=== PATIENT | male | born 1985 | race Caucasian/White ===

== ENCOUNTER 2019-03-19 19:28 | Emergency (ER) | payer MEDICAID, SELFPAY ==
[2019-03-19] VITALS (11 sets, daily range): BP systolic 121–123; BP diastolic 64–74; PULSE 65–73; RESP 16–20; TEMP 36.9–37.2; O2SAT 95–100
--- NOTE | 2019-03-19 19:46 | W.ED.GENAD ---
Discharge Plan Disposition Patient Disposition: HOME Condition: Good Discharge Details Chief Complaint: Abd Prob Clinical Impression: Abdominal pain, epigastric Primary Care Provider: Jennifer Benitez ED Provider: Tim Sutton [place] Meds and New Rx's Prescriptions: New esomeprazole magnesium 40 mg capsule,delayed release(DR/EC) 40 mg PO DAILY Qty: 30 RF: 0 ranitidine HCl 300 mg tablet 300 mg PO QHS Qty: 30 RF: 0 Continued amantadine HCl 100 mg Tablet 100 mg PO BID RF: 0 carbidopa-levodopa 25-100 mg Tablet 1 tab PO TID RF: 0 oxycodone 10 mg Tablet 10 mg PO Q6H PRNRF: 0 ropinirole 4 mg Tablet Extended Release 24 Hr 4 mg PO QHS RF: 0 zolpidem 5 mg Tablet 5 mg PO HS RF: 0 sucralfate [Carafate] 100 mg/mL Suspension 10 ml PO QID Qty: 400 RF: 0 Discontinued metoclopramide HCl 10 mg Tablet 10 mg PO Q6H RF: 0 Discharge Instructions Instructions: Epigastric Pain (ED) Additional Instructions: Please take medications as we have discussed. Stay hydrated. Try a BRAT diet. Call our surgery clinic in the morning and make an appointment for Sunday. Return to ED for fever, vomiting, black or bloody stool, new/worsening pain. Referrals: Sybil Bowers MD [ [facility] STAFF PHYSICIAN] - Discharge Data Discharge Date/Time-TO BE ENTERED AT DEPARTURE: 03/19/19 22:35 Medical Decision Making Patient presenting with continued epigastric abdominal pain. Reports negative work-up x3 at [facility]. I did obtain his last visit records as well as the surgeon's note from today. He has had laboratory studies which are unremarkable. CT and abdominal x-rays unremarkable. Surgeon's note suggests that he thinks this is chronic abdominal pain and constipation related to opiate use. Patient does have a benign abdomen. I did place a line to give him fluids and Pepcid. The notes suggest that he is on a PPI as well as Carafate although he is not sure exactly which medications he is taking. He is also placed on Reglan but my review of medication interactions suggest that Reglan should not be used due to his Parkinson's medications and the risk of decreasing their efficacy. I spoke with our surgeon, Dr. Velez. I do agree that patient has a benign abdomen. He has had a work-up that seems appropriate at [facility]. I do think, however, he needs endoscopy sooner rather than later. I actually think his symptoms are highly suggestive of peptic ulcer disease. There is note made in the surgeon's chart the patient does have a prior history of esophagitis. Dr. Velez thinks that they will likely be able to get the patient into the clinic to be seen early next week. Patient is asked to continue Carafate 4 times a day. Nexium 40 mg in the morning. Zantac 300 mg at night. Contact surgery clinic tomorrow for appointment on Sunday if possible. Return to ED for fever, no/worsening abdominal pain, persistent vomiting, hematemesis/coffee-ground emesis, black or bloody stool. Medical Records Medical records reviewed: Yes I reviewed the patient's medical records. HPI General Mode of arrival: ambulatory. Date/Time Provider Initiated Documentation: 03/19/19 19:37. Limitations to Documentation: no limitations. Information obtained by: patient. HPI Narrative: Patient presents to ED with complaints of epigastric abdominal pain. Patient reports worsening epigastric pain for the last 2 weeks. He has not really been able to eat much of anything this week. He has been seen at [facility] 3 times including last night. He reports laboratory studies, CT scan, x-rays being negative. He was supposed to have endoscopies done today but they were canceled. He was seen by a surgeon who has apparently scheduled him for sometime in April. His pain was worse again tonight. He called his primary care physician and per his report was told he should come here to our emergency department for a second opinion. Patient has Parkinson's as well as chronic pain. He does use oxycodone on a regular basis. He does have episodes of opioid-induced constipation with associated abdominal pain at that time. He takes medications which allow him to go to the bathroom and then he feels better. He does not have daily constipation or daily abdominal pain. This pain that he is describing over the last couple weeks is new and different. Related Data Home Medications Medication Instructions Recorded Confirmed amantadine HCl 100 mg PO BID 03/19/19 03/19/19 carbidopa-levodopa 1 tab PO TID 03/19/19 03/19/19 esomeprazole magnesium 40 mg PO DAILY #30 cap 03/19/19 oxycodone 10 mg PO Q6H PRN 03/19/19 03/19/19 ranitidine HCl 300 mg PO QHS #30 tab 03/19/19 ropinirole 4 mg PO QHS 03/19/19 03/19/19 sucralfate [Carafate] 10 ml PO QID #400 ml 03/19/19 zolpidem 5 mg PO HS 03/19/19 03/19/19 Previous Rx's Medication Instructions Recorded esomeprazole magnesium 40 mg PO DAILY #30 cap 03/19/19 ranitidine HCl 300 mg PO QHS #30 tab 03/19/19 sucralfate [Carafate] 10 ml PO QID #400 ml 03/19/19 Allergies Allergy/AdvReac Type Severity Reaction Status Date / Time No Known Allergies Allergy Unverified 03/19/19 19:42 General Stated Complaint: Abd Prob CURLY: 3 Review of Systems Review of Systems As documented in HPI otherwise negative as below. Const: no fever, chills, weakness Resp: no cough, SOB, pleuritic pain CV: no CP, diaphoresis, edema, syncope GI: abdominal pain, nausea; no vomiting, diarrhea Neuro: no headache, numbness, focal weakness, confusion PFSH Medical History Degenerative disc disease (Acute) H/O endoscopy (Acute) Parkinson disease (Chronic) Surgical History History of carpal tunnel release of both wrists (Acute) Social History Smoking/Tobacco Use Status: Former Tobacco Use Drug use: Never Do you feel safe at home: Yes Exam Narrative Exam Narrative: Vitals: Afebrile with normal vitals. Const: WDWN male in NAD. HEENT: NC/AT. Normal facial exam. Eyes: Normal conjunctiva and sclera. Neck: Supple. Trachea midline. Lungs: Normal respiratory effort. Lungs are clear. Cor: RRR without murmur/gallop. Good radial pulses. GI: Soft. NT/ND. No guarding or rebound. No HSM. Neuro: A+O x 3. CN grossly in tact. Good strength and no focal deficit. Ext: No C/C/E. No deformity or tenderness. Skin: Warm and dry without rash. Course Vital Signs Temperature 98.4 F 03/19/19 19:38 Pulse 73 03/19/19 19:38 Respiratory Rate 20 03/19/19 19:38 Blood Pressure 123/64 03/19/19 19:38 Pulse Oximetry 98 03/19/19 19:38 Temperature 98.4 F 03/19/19 19:38 Temperature Source Skin 03/19/19 19:38 Pulse 73 03/19/19 19:38 Respiratory Rate 20 03/19/19 19:38 Blood Pressure 123/64 03/19/19 19:38 Pulse Oximetry 98 03/19/19 19:38 Oxygen Delivery Method Room Air 03/19/19 19:38 Oxygen Flow Rate 0 03/19/19 19:38 Pain Level 8 03/19/19 19:38
--- NOTE | 2019-03-19 19:49 | ED.GENADUL_ITS ---
Discharge Plan Disposition Patient Disposition: HOME Condition: Good Discharge Details Chief Complaint: Abd Prob Clinical Impression: Abdominal pain, epigastric Primary Care Provider: Jennifer Benitez ED Provider: Tim Sutton [place] Meds and New Rx's Prescriptions: New esomeprazole magnesium 40 mg capsule,delayed release(DR/EC) 40 mg PO DAILY Qty: 30 RF: 0 ranitidine HCl 300 mg tablet 300 mg PO QHS Qty: 30 RF: 0 Continued amantadine HCl 100 mg Tablet 100 mg PO BID RF: 0 carbidopa-levodopa 25-100 mg Tablet 1 tab PO TID RF: 0 oxycodone 10 mg Tablet 10 mg PO Q6H PRNRF: 0 ropinirole 4 mg Tablet Extended Release 24 Hr 4 mg PO QHS RF: 0 zolpidem 5 mg Tablet 5 mg PO HS RF: 0 sucralfate [Carafate] 100 mg/mL Suspension 10 ml PO QID Qty: 400 RF: 0 Discontinued metoclopramide HCl 10 mg Tablet 10 mg PO Q6H RF: 0 Discharge Instructions Instructions: Epigastric Pain (ED) Additional Instructions: Please take medications as we have discussed. Stay hydrated. Try a BRAT diet. Call our surgery clinic in the morning and make an appointment for Sunday. Return to ED for fever, vomiting, black or bloody stool, new/worsening pain. Referrals: Sybil Bowers MD [ [facility] STAFF PHYSICIAN] - Discharge Data Discharge Date/Time-TO BE ENTERED AT DEPARTURE: 03/19/19 22:35 Medical Decision Making Patient presenting with continued epigastric abdominal pain. Reports negative work-up x3 at [facility]. I did obtain his last visit records as well as the surgeon's note from today. He has had laboratory studies which are unremarkable. CT and abdominal x-rays unremarkable. Surgeon's note suggests that he thinks this is chronic abdominal pain and constipation related to opiate use. Patient does have a benign abdomen. I did place a line to give him fluids and Pepcid. The notes suggest that he is on a PPI as well as Carafate although he is not sure exactly which medications he is taking. He is also placed on Reglan but my review of medication interactions suggest that Reglan should not be used due to his Parkinson's medications and the risk of decreasing their efficacy. I spoke with our surgeon, Dr. Velez. I do agree that patient has a benign abdomen. He has had a work-up that seems appropriate at [facility]. I do think, however, he needs endoscopy sooner rather than later. I actually think his symptoms are highly suggestive of peptic ulcer disease. There is note made in the surgeon's chart the patient does have a prior history of esophagitis. Dr. Velez thinks that they will likely be able to get the patient into the clinic to be seen early next week. Patient is asked to continue Carafate 4 times a day. Nexium 40 mg in the morning. Zantac 300 mg at night. Contact surgery clinic tomorrow for appointment on Sunday if possible. Return to ED for fever, no/worsening abdominal pain, persistent vomiting, hematemesis/coffee- ground emesis, black or bloody stool. Medical Records Medical records reviewed: Yes I reviewed the patient's medical records. HPI General Mode of arrival: ambulatory . Date/Time Provider Initiated Documentation: 03/19/19 19:37 . Limitations to Documentation: no limitations . Information obtained by: patient . HPI Narrative: Patient presents to ED with complaints of epigastric abdominal pain. Patient reports worsening epigastric pain for the last 2 weeks. He has not really been able to eat much of anything this week. He has been seen at [facility] 3 times including last night. He reports laboratory studies, CT scan, x-rays being negative. He was supposed to have endoscopies done today but they were canceled. He was seen by a surgeon who has apparently scheduled him for sometime in April. His pain was worse again tonight. He called his primary care physician and per his report was told he should come here to our emergency department for a second opinion. Patient has Parkinson's as well as chronic pain. He does use oxycodone on a regular basis. He does have episodes of opioid-induced constipation with associated abdominal pain at that time. He jane es medications which allow him to go to the bathroom and then he feels better. He does not have daily constipation or daily abdominal pain. This pain that he is describing over the last couple weeks is new and different. Related Data Home Medications Medication Instructions Recorded Confirmed amantadine HCl 100 mg PO BID 03/19/19 03/19/19 carbidopa-levodopa 1 tab PO TID 03/19/19 03/19/19 esomeprazole magnesium 40 mg PO DAILY #30 cap 03/19/19 oxycodone 10 mg PO Q6H PRN 03/19/19 03/19/19 ranitidine HCl 300 mg PO QHS #30 tab 03/19/19 ropinirole 4 mg PO QHS 03/19/19 03/19/19 sucralfate [Carafate] 10 ml PO QID #400 ml 03/19/19 zolpidem 5 mg PO HS 03/19/19 03/19/19 Previous Rx's Medication Instructions Recorded esomeprazole magnesium 40 mg PO DAILY #30 cap 03/19/19 ranitidine HCl 300 mg PO QHS #30 tab 03/19/19 sucralfate [Carafate] 10 ml PO QID #400 ml 03/19/19 Allergies Allergy/AdvReac Type Severity Reaction Status Date / Time No Known Allergies Allergy Unverified 03/19/19 19:42 General Stated Complaint: Abd Prob CULRY: 3 Review of Systems Review of Systems As documented in HPI otherwise negative as below. Const: no fever, chills, weakness Resp: no cough, SOB, pleuritic pain CV: no CP, diaphoresis, edema, syncope GI: abdominal pain, nausea; no vomiting, diarrhea Neuro: no headache, numbness, focal weakness, confusion PFSH Medical History Degenerative disc disease (Acute) H/O endoscopy (Acute) Parkinson disease (Chronic) Surgical History History of carpal tunnel release of both wrists (Acute) Social History Smoking/Tobacco Use Status: Former Tobacco Use Drug use: Never Do you feel safe at home: Yes Exam Narrative Exam Narrative: Vitals: Afebrile with normal vitals. Const: WDWN male in NAD. HEENT: NC/AT. Normal facial exam. Eyes: Normal conjunctiva and sclera. Neck: Supple. Trachea midline. Lungs: Normal respiratory effort. Lungs are clear. Cor: RRR without murmur/gallop. Good radial pulses. GI: Soft. NT/ND. No guarding or rebound. No HSM. Neuro: A+O x 3. CN grossly in tact. Good strength and no focal deficit. Ext: No C/C/E. No deformity or tenderness. Skin: Warm and dry without rash. Course Vital Signs Temperature 98.4 F 03/19/19 19:38 Pulse 73 03/19/19 19:38 Respiratory Rate 20 03/19/19 19:38 Blood Pressure 123/64 03/19/19 19:38 Pulse Oximetry 98 03/19/19 19:38 Temperature 98.4 F 03/19/19 19:38 Temperature Source Skin 03/19/19 19:38 Pulse 73 03/19/19 19:38 Respiratory Rate 20 03/19/19 19:38 Blood Pressure 123/64 03/19/19 19:38 Pulse Oximetry 98 03/19/19 19:38 Oxygen Delivery Method Room Air 03/19/19 19:38 Oxygen Flow Rate 0 03/19/19 19:38 Pain Level 8 03/19/19 19:38
[2019-03-19] MEDS: Lactated Ringers 1,000 ML 1000 ML IV (20:48)
[2019-03-19] MEDS: FAMOTIDINE 20 MG/50 ML BAG 100 MG IVPB (20:48)
[2019-03-19] MEDS: Mylanta Suspension 30 ML CUP (22:15)
[2019-03-19] MEDS: Lidocaine 2% Viscous 15 ML CUP (22:16)
== END 2019-03-19 22:35 | disposition home or self-care (01) ==
PROVIDERS: Emergency Provider Emergency Medicine; PCP Physician Assistant Medical
DX: R10.13 Epigastric pain (principal); G89.29 Other chronic pain; Z79.891 Long term (current) use of opiate analgesic; G20 Parkinson's disease
CPT/HCPCS: 96361; 96365; 99284

== ENCOUNTER 2019-03-23 19:14 | Emergency (ER) | payer MEDICAID, SELFPAY ==
[2019-03-23 19:19] VITALS: BP 120/101; PULSE 66; RESP 18; TEMP 36.6; O2SAT 99
--- NOTE | 2019-03-23 19:59 | ED.GENADUL_ITS ---
Discharge Plan Disposition Patient Disposition: HOME Condition: Stable Discharge Details Chief Complaint: Abd Prob Clinical Impression: Abdominal pain Primary Care Provider: Jennifer Benitez ED Provider: Carina Stone Home Meds and New Rx's Prescriptions: New ondansetron 4 mg tablet,disintegrating 4 mg PO QID PRN (Reason: nausea and vomiting) Qty: 10 RF: 0 Continued amantadine HCl 100 mg Tablet 100 mg PO BID RF: 0 carbidopa-levodopa 25-100 mg Tablet 1 tab PO TID RF: 0 oxycodone 10 mg Tablet 10 mg PO Q6H PRNRF: 0 ropinirole 4 mg Tablet Extended Release 24 Hr 4 mg PO QHS RF: 0 zolpidem 5 mg Tablet 5 mg PO HS RF: 0 esomeprazole magnesium 40 mg capsule,delayed release(DR/EC) 40 mg PO DAILY Qty: 30 RF: 0 ranitidine HCl 300 mg tablet 300 mg PO QHS Qty: 30 RF: 0 sucralfate [Carafate] 100 mg/mL Suspension 10 ml PO QID Qty: 400 RF: 0 Discharge Instructions Instructions: Ondansetron (By mouth), Abdominal Pain (ED) Additional Instructions: Encourage hydration. Please call radiology tomorrow morning to schedule outpatient ultrasound [phone]. In prep for this, please do not eat anything after midnight. Please keep your appointment tomorrow with Dr. Bowers. Remain on a clear liquid diet (after your ultrasound) and she plans to take you for colonoscopy and endoscopy on Sunday. You may use Zofran as prescribed to help with any recurrence of your nausea. If you develop fever/chills, inability stay hydrated, increased pain or other new/worsening symptoms please seek care urgently once again Discharge Data Discharge Date/Time-TO BE ENTERED AT DEPARTURE: 03/23/19 22:08 Medical Decision Making Patient is a 33 male presenting today, accompanied by his , with c/c of abdominal pain. Patient has history of chronic back pain for which he has been on narcotics, Parkinsons, degenerative disc disease. He has had this pain for the past several weeks. Was seen here last week, has been seen multiple times at [facility] for same complaint. Presents today as rosemarie pain has increased and he had episode of emesis which is atypical for the patient. No previousl abdominal surgeries. He was seen by gneral surgeon who advised EGD and colonoscopybut this was not able to be scheduled until April. He has appointment with general surgery here tomorrow. Patient reprots no BM in 6 days, had used entire bottle of Miralax the night prior to his last BM. No change in urinary habits. Denies marijuana use. No ETOh intake. On exam, patient appears fatigued and slightly uncomfortable. He abdominal exam is benign. No tenderness elicited, no peritoneal findings. No CVA tenderness. As he has no BM in 6 days, no flatus reported and he has increased pain, concerned for possible obstruction. Patient on mcfp opioids. Plan for labs and imagi ng. Labs reassuring, no leukocytosis, no electrolye abnormalities. Lipase is normal. CT reviewed by radiologist: FINDINGS: Liver: There is a diffuse decrease in hepatic parenchymal density, consistent with mild fatty infiltration. Gallbladder and bile ducts: No intrahepatic biliary ductal dilatation Common bile duct is normal in caliber. No gallstones, gallbladder wall thickening or pericholecystic inflammatory change. Pancreas: There is mild diffuse peripancreatic inflammatory stranding and fluid, consistent with acute pancreatitis. Main pancreatic duct is normal in caliber. Spleen: Normal. No splenomegaly. Adrenals: Normal. No mass. Kidneys and ureters: Normal. No hydronephrosis. Stomach and bowel: Normal. No obstruction. No mucosal thickening. Appendix: No evidence of appendicitis. Intraperitoneal space: There is a small amount of free intraperitoneal fluid present. No free intraperitoneal gas, collections or air-fluid levels. Vasculature: Normal. No abdominal aortic aneurysm. Lymph nodes: Normal. No enlarged lymph nodes. Bladder: Unremarkable as visualized. Reproductive: Unremarkable as visualized. Bones/joints: The spine demonstrates mild degenerative changes at multiple l evels. Posterior disc bulge at L5-S1 level. Soft tissues: Unremarkable. IMPRESSION: 1. Acute pancreatitis. 2. Mild intrahepatic biliary ductal dilatation which may be as a consequence of inflammatory process involving the pancreas. 3. Fatty liver. 4. Disc bulge L5-S1 level. Consulted with Dr. Bowers who advised that the inflammatory changes in the pancrease, as patient does not have history of pancreatitis historically and has no elevation of his lipase, may be associated with ulcer. She advised that the patient if has not undergone abdominal ultrasound this should be completed. Patient has an appointment with her tomorrow at noon. Will attempt to have this completed prior to their appointment. She is also asked the patient remain on a clear liquid diet as she will plan to schedule him for surgery Sunday for an endoscopy and colonoscopy Patient is feeling much improved after Zofran and Toradol. He is requesting a GI cocktail was also worked well for him in the past. Patient feels improved. Has not had US. Will order this in hopes for it to be completed tomorrow morning prior to his appointment. He was given strict return precautions. All questions and concerns were addressed, they are in agreement iwht this plan. HPI General Mode of arrival: ambulatory . Date/Time Provider Initiated Documentation: 03/23/19 19:17 . Limitations to Documentation: no limitations . Information obtained by: patient, family and RN notes reviewed . History of Present Illness 33 year old M presents to the emergency department with the chief complaint of abdominal pain, described as severe and similar to prior episodes, Quality is described as stabbing, and is localized to the abdomen. Patient reports no radiation. Patient started experiencing this week(s) and it has been constant. No relieving factors improve symptom(s), No exacerbating factors reported . Patient notes loss of appetite, malaise and nausea/vomiting (vomited x 1); denies chest pain, cough, fever/chills, headaches, rash, shortness of breath and weakness. Patient did receive the following treatments prior to arrival, none Related Data Home Medications Medication Instructions Recorded Confirmed amantadine HCl 100 mg PO BID 03/19/19 03/23/19 carbidopa-levodopa 1 tab PO TID 03/19/19 03/23/19 esomeprazole magnesium 40 mg PO DAILY #30 cap 03/19/19 03/23/19 oxycodone 10 mg PO Q6H PRN 03/19/19 03/23/19 ranitidine HCl 300 mg PO QHS #30 tab 03/19/19 03/23/19 ropinirole 4 mg PO QHS 03/19/19 03/23/19 sucralfate [Carafate] 10 ml PO QID #400 ml 03/19/19 03/23/19 zolpidem 5 mg PO HS 03/19/19 03/23/19 ondansetron 4 mg PO QID PRN #10 tab 03/23/19 Previous Rx's Medication Instructions Recorded esomeprazole magnesium 40 mg PO DAILY #30 cap 03/19/19 ranitidine HCl 300 mg PO QHS #30 tab 03/19/19 sucralfate [Carafate] 10 ml PO QID #400 ml 03/19/19 ondansetron 4 mg PO QID PRN #10 tab 03/23/19 Allergies Allergy/AdvReac Type Severity Reaction Status Date / Time No Known Allergies Allergy Unverified 03/23/19 19:22 General Stated Complaint: Abd Prob CURLY: 3 Review of Systems Constitutional Reports as per HPI, Denies chills, Denies fatigue, Denies fever(s) and Denies headache(s) ENT Denies headache(s) Cardiovascular Reports as per HPI, Denies chest pain and Denies dyspnea Respiratory Reports as per HPI, Denies cough and Denies dyspnea Gastrointestinal Reports as per HPI Genitourinary Denies system reviewed and no additional complaints, except as docu (patient denies any change in urinary habits) Musculoskeletal Reports as per HPI and Denies back pain Integumentary/Breasts Reports as per HPI and Denies rash Neurologic Reports as per HPI and Denies headache(s) Endocrine Denies fatigue [facility] Medical History Degenerative disc disease (Acute) H/O endoscopy (Acute) Parkinson disease (Chronic) Surgical History History of carpal tunnel release of both wrists (Acute) Social History Smoking/Tobacco Use Status: Current every day Tobacco Type: cigarettes Alcohol Intake: never Drug use: Never Do you feel safe at home: Yes Do you feel safe in your relationship?: Yes Exam Const General: cooperative, healthy appearing, comfortable, no acute distress and well developed Nutritional Appearance: average body habitus and well nourished Orientation: alert and awake [facility] Head: normal to inspection Mouth: moist mucous membranes Resp Effort & Inspection: normal respiratory effort, able to speak in complete sentences and no respiratory distress Auscultation: clear to auscultation bilaterally, no rales, no rhonchi and no wheezes Cardio Rate: regular rate Rhythm: regular rhythm Heart Sounds: S1 normal and S2 normal GI Inspection: normal to inspection, no edema, non-distended and no incisions Palpation: soft, no hepatosplenomegaly, not firm, no guarding, not rigid and nontender Percussion: normal to percussion Auscultation: hypoactive bowel sounds Back/Spine/Pelvis Back: no CVA tenderness Skin General skin exam: no rashes or lesions noted Trauma: no lacerations or abrasions Neuro General: alert and awake Cognition: normal cognition Speech: speech normal Gait: normal gait Extrem General: normal to inspection, full ROM, normal capillary refill, no pedal edema, no calf tenderness and normal gait Psych Appearance: grossly normal and well kempt Mental Status: mental status grossly normal Speech and Movement: speech and movement normal Course Vital Signs Temperature 36.6 C 03/23/19 19:19 Pulse 66 03/23/19 19:19 Respiratory Rate 18 03/23/19 19:19 Blood Pressure 120/101 H 03/23/19 19:19 Pulse Oximetry 99 03/23/19 19:19 Temperature 36.6 C 03/23/19 19:19 Temperature Source Skin 03/23/19 19:19 Pulse 66 03/23/19 19:19 Respiratory Rate 18 03/23/19 19:19 Respiratory Effort Non-Labored 03/23/19 19:21 Blood Pressure 120/101 H 03/23/19 19:19 Blood Pressure Position Supine 03/23/19 19:19 Pulse Oximetry 99 03/23/19 19:19 Oxygen Delivery Method Room Air 03/23/19 19:19 Oxygen Flow Rate 0 03/23/19 19:19 Pain Level 10 03/23/19 19:41
[2019-03-23] MEDS: Normal Saline 1,000 ML 1000 ML IV (20:14)
[2019-03-23] MEDS: Ondansetron 4 MG/2 ML VIAL IVP (20:15)
[2019-03-23] MEDS: Ketorolac 30 MG/ML VIAL IVP (20:15)
[2019-03-23 20:25] LABS: Abs Immature Grans 0.02 k/cumm (0.0-0.09); Absolute Basophil Count 0.02 k/cumm (0.0-0.2); Absolute Eosinophil Count 0.06 k/cumm (0.0-0.7); Absolute Lymphocyte Count 1.08 k/cumm (1.2-3.4); Absolute Monocyte Count 0.82 k/cumm (0.11-0.7); Absolute Neutrophil Count 8.04 k/cumm (1.2-6.7); Basophils % 0.2; Eosinophils % 0.6; HCT 47.2 % (40.0-50.0); HGB 16.5 g/dL (13.5-17.5); Immature Grans % 0.2; Lymphocytes % 10.8; Mean Corpuscular Hemoglobin 30.4 pg (27.0-33.0); Mean Corpuscular Volume 87.1 fL (80-95); Mean Platelet Volume 12.3 fL (8.0-11.0); Monocytes % 8.2; Platelet Count 154 x1000/uL (130-400); RBC 5.42 m/cumm (4.50-6.00); RBC Distribution Width 11.9 % (11.8-14.1); White Blood Cell Count 10.04 k/cumm (4.4-10.8)
[2019-03-23 20:36] VITALS: BP 105/53; PULSE 57; RESP 16; O2SAT 98
[2019-03-23 20:41] LABS: ALT 42 U/L (12-78); AST 18 U/L (15-37); Albumin 4.4 g/dL (3.4-5.0); Alkaline Phosphatase 122 U/L (46-116); Anion Gap 11.6 mmol/L (3-11); BUN 11 mg/dL (7-18); Bilirubin, Total 0.7 mg/dL (0.2-1.0); CO2 28.4 mmol/L (21.0-32.0); CREATININE 0.94 mg/dL (0.70-1.30); Calcium 9.8 mg/dL (8.5-10.1); Chloride 98 mmol/L (98-107); Glucose 98 mg/dL (70-100); Lipase 82 U/L (73-393); Sodium 138 mmol/L (136-145); Total Protein 9.1 g/dL (6.4-8.2)
[2019-03-23] MEDS: Omnipaque 350 MG/ML 100 ML BTL IJ (20:59)
[2019-03-23] MEDS: Normal Saline Flush 10 ML SYR IVP (21:00)
--- NOTE | 2019-03-23 21:00 | DI.CT_ITS ---
SYMPTOM/DIAGNOSIS: ABD PAIN, ? OBSTRUCTION ABDOMEN AND PELVIC CT: CT scan of the abdomen and pelvis was performed following the uneventful administration of intravenous contrast material. There are no priors for comparison. There does appear to be diffuse decreased attenuation of the liver suggesting fatty infiltration. No discrete hepatic mass is present. There is decreased attenuation seen in the left portal vein. The gallbladder is negative. There is no biliary ductal dilatation. Mild increased attenuation is seen in the region of the pancreas and the retroperitoneal space at the level of the superior mesenteric artery. A mild pancreatitis cannot be excluded. The spleen and adrenal glands are unremarkable as are the kidneys, ureters and bladder. The reproductive organs are unremarkable. The bowel shows no evidence of obstruction or inflammation. No findings to suggest an acute appendicitis are present. A normal appendix is seen in the right lower quadrant of the abdomen. No significant abdominal or pelvic adenopathy, ascites or pneumoperitoneum is present. No acute osseous abnormality is identified. There is a trace amount of free fluid in the pelvis. Degenerative changes are seen in the spine. IMPRESSION: 1. Mild increased attenuation in the peripancreatic soft tissues and retroperitoneum at this level. A mild acute pancreatitis cannot be excluded. Please correlate with the patient's laboratory values. 2. Findings of decreased attenuation of the portal vein. A post contrast CT scan of the abdomen is recommended to coincide with venous enhancement to exclude filling defect such as a thrombus. Alternatively a right upper quadrant ultrasound may be considered for further evaluation. 3. Hepatic steatosis.
--- NOTE | 2019-03-23 21:24 | DI.VRAD_ITS ---
EXAM: CT Abdomen and Pelvis With Contrast EXAM DATE/TIME: 03/23/2019 8:09 PM CLINICAL HISTORY: 33 years old, male; Abdominal pain; Other: ? Obstruction TECHNIQUE: Imaging protocol: Axial computed tomography images of the abdomen and pelvis with intravenous contrast. Coronal and sagittal reformatted images were created and reviewed. Contrast material: OMNIPAQUE 350; Contrast volume: 100 ml; Contrast route: IV RAC; COMPARISON: No relevant prior studies available. FINDINGS: Liver: There is a diffuse decrease in hepatic parenchymal density, consistent with mild fatty infiltration. Gallbladder and bile ducts: No intrahepatic biliary ductal dilatation Common bile duct is normal in caliber. No gallstones, gallbladder wall thickening or pericholecystic inflammatory change. Pancreas: There is mild diffuse peripancreatic inflammatory stranding and fluid, consistent with acute pancreatitis. Main pancreatic duct is normal in caliber. Spleen: Normal. No splenomegaly. Adrenals: Normal. No mass. Kidneys and ureters: Normal. No hydronephrosis. Stomach and bowel: Normal. No obstruction. No mucosal thickening. Appendix: No evidence of appendicitis. Intraperitoneal space: There is a small amount of free intraperitoneal fluid present. No free intraperitoneal gas, collections or air-fluid levels. Vasculature: Normal. No abdominal aortic aneurysm. Lymph nodes: Normal. No enlarged lymph nodes. Bladder: Unremarkable as visualized. Reproductive: Unremarkable as visualized. Bones/joints: The spine demonstrates mild degenerative changes at multiple levels. Posterior disc bulge at L5-S1 level. Soft tissues: Unremarkable. IMPRESSION: 1. Acute pancreatitis. 2. Mild intrahepatic biliary ductal dilatation which may be as a consequence of inflammatory process involving the pancreas. 3. Fatty liver. 4. Disc bulge L5-S1 level. Dictated and Authenticated by: Alcon Chew MD. Ordering:SHAMEKA Lim MD
[2019-03-23 21:30] LABS: Bilirubin Small (Negative); Blood Negative (Negative); Clarity Clear (Clear); Glucose Negative (Negative); Ketones 80 mg/dL (Negative); Leukocyte Esterase Negative (Negative); Nitrite Negative (Negative); Specific Gravity 1.015 (1.005-1.025); Urobilinogen 0.2 EU/dL (Up TO 0.2)
[2019-03-23 21:35] LABS: Bacteria Negative HPF (Negative); C & S Indicated? No; Casts Negative LPF (Negative); Crystals Negative HPF (Negative); Epithelial Cells Negative HPF (Negative); Mucus Moderate (Negative); Other Cells Negative (Negative); RBC Negative (0-2); WBC 0-2 HPF (0-5)
[2019-03-23 21:57] VITALS: BP 111/55; PULSE 68; RESP 18; TEMP 36.7; O2SAT 98
[2019-03-23] MEDS: Ondansetron O.D.T. 4 MG TABEF 12 MG PO (22:08)
== END 2019-03-23 22:08 | disposition home or self-care (01) ==
PROVIDERS: Emergency Provider Physician Assistant; PCP Physician Assistant Medical
DX: R10.9 Unspecified abdominal pain (principal); G89.29 Other chronic pain; M54.9 Dorsalgia, unspecified; Z79.891 Long term (current) use of opiate analgesic; G20 Parkinson's disease
CPT/HCPCS: 80053; 83690; 96361; 96374; 96375; 99285; 74177; 81003; 81015; 83735; 85025; 99284; J1885; J2405; J3490

== ENCOUNTER 2019-03-24 07:51 | Outpatient (CLI) | payer MEDICAID, SELFPAY ==
--- NOTE | 2019-03-24 12:29 | DI.US_ITS ---
SYMPTOM/DIAGNOSIS: EPIGASTRIC PAIN, ? PANCREATITIS, F/U ABNL CT ABDOMEN ULTRASOUND: Routine examination was performed. The study is severely limited due to overlying bowel gas. The aorta appears to be normal in caliber. The inferior vena cava was not visualized. Significant portions of the liver could not be visualized due to patient body habitus. No gross hepatic abnormality is identified. No biliary ductal dilatation is seen. No stones are seen in the gallbladder. No gallbladder wall thickening or pericholecystic fluid is seen. There may be a small amount of sludge within the gallbladder. The visualized portions of the pancreas and kidney are unremarkable. The spleen is at the upper limits of normal at 12.7 cm. in length. IMPRESSION: 1. Limited examination due to overlying bowel and patient body habitus. 2. No evidence of cholelithiasis or biliary ductal dilatation. 3. Question of gallbladder sludge.
== END 2019-03-24 08:11 ==
PROVIDERS: PCP Physician Assistant Medical; Visit Provider Physician Assistant
DX: R10.13 Epigastric pain (principal); K83.8 Other specified diseases of biliary tract
CPT/HCPCS: 76700

== ENCOUNTER 2019-03-25 09:05 | Day surgery (SDC) | payer MEDICAID, SELFPAY ==
[2019-03-25 09:35] VITALS: BP 122/75; PULSE 67; RESP 16; TEMP 36.6; O2SAT 98
[2019-03-25] MEDS: Lactated Ringers 1,000 ML 80 ML IV (09:58)
[2019-03-25] MEDS: Ondansetron 4 MG/2 ML VIAL IVP (10:04)
[2019-03-25] MEDS: Normal Saline Flush 10 ML SYR IV (10:05)
[2019-03-25] MEDS: ACETAMINOPHEN 1,000 MG/100 ML BTL 400 MG IVPB (10:09)
--- NOTE | 2019-03-25 11:40 | BOWEL_PTH ---
PATIENT: Mango Martell LOC: [facility] U#:[id number] AGE/SX: 33/M ROOM: RE03/25/[address]: Sybil Bowers MD : 1985 BED: DIS: 03/25/2019 SPEC #: [id number] RECD: 03/25/19 13:02 STATUS: KAMI REQ #: [id number] NORMAN: 03/25/19 11:[address]: Sybil Bowers DEPT: Surgical Specimen RECD BY: Myrna Yuan ENTERED: 03/25/19 13:04 SP TYPE: Bowel OTHR DR: Jennifer Benitez Tissues: 1 - BIOPSY BOWEL 2 - STOMACH BIOPSY Procedures: GROSS AND MICRO LEVEL 4 Comments: [id number]
--- NOTE | 2019-03-25 12:00 | W.PM.DSUDISC ---
Discharge Plan Disposition Patient Disposition: HOME Condition: Fair Discharge Details Reason For Visit: EPIGASTRIC PAIN,CHANGE IN BOWEL HABITS Attending Provider: Sybil Bowers Primary Care Provider: Jennifer Benitez Home Meds and New Rx's Prescriptions: Continued amantadine HCl 100 mg Tablet 100 mg PO BID RF: 0 carbidopa-levodopa 25-100 mg Tablet 1 tab PO TID RF: 0 oxycodone 10 mg Tablet 10 mg PO Q6H PRNRF: 0 ropinirole 4 mg Tablet Extended Release 24 Hr 4 mg PO QHS RF: 0 zolpidem 5 mg Tablet 5 mg PO HS RF: 0 esomeprazole magnesium 40 mg capsule,delayed release(DR/EC) 40 mg PO DAILY Qty: 30 RF: 0 ranitidine HCl 300 mg tablet 300 mg PO QHS Qty: 30 RF: 0 sucralfate [Carafate] 100 mg/mL Suspension 10 ml PO QID Qty: 400 RF: 0 ondansetron 4 mg tablet,disintegrating 4 mg PO QID PRN (Reason: nausea and vomiting) Qty: 10 RF: 0 Discontinued polyethylene glycol 3350 17 gram/dose powder 238 g PO ONCE Qty: 238 RF: 0 bisacodyl 5 mg tablet,delayed release (DR/EC) 5 mg PO ONCE Qty: 4 RF: 0 Discharge Instructions Additional Instructions: Your EGD showed moderate inflammation of the stomach and duodenum. Continue the antacid treatment and avoid NSAIDS/smoking and alcohol which can worsen inflammation. It will take several months to heal. Call when you feel ready to tolerate the bowel prep for a colonoscopy Stand Alone Forms: DSU Post EGD Instructions, Giselle Galloway (DSU) Activity:: Activity as Tolerated Diet:: As Tolerated Discharge Orders Discharge Orders: Discharge Order (Routine); Ordered 03/25/19 Ordered By: Sybil Bowers DS: Diagnosis Discharge Diagnosis (1) Gastritis: Status: Acute (2) Duodenitis: Status: Acute
[2019-03-25 12:42] VITALS: BP 105/66; PULSE 85; RESP 18; TEMP 36.2; O2SAT 97
--- NOTE | 2019-03-27 11:28 | ENDO_ITS ---
DATE OF PROCEDURE: March 25, 2019 PREOPERATIVE DIAGNOSIS: 1) Epigastric pain. 2) Change in bowel habits. POSTOPERATIVE DIAGNOSIS: Moderate gastritis and duodenitis. SURGEON: Dr. Bowers. ANESTHESIA: General. INDICATIONS: This is a 33-year-old man who complains of epigastric pain, nausea and vomiting. He has been having difficulty with PO intake. He also notes some increase in constipation. The patien t has had an extensive evaluation in the Emergency Department with unremarkable labs and a essentiall y a normal CT scan of the abdomen and pelvis. The patient was scheduled today for a colonoscopy as well as an esophagogastroduodenoscopy but was unfortunately unable to tolerate the prep. OPERATIVE PROCEDURE: He was placed in the left lateral decubitus position. Propofol was titrated to sedation. The scope was advanced into the esophagus under direct visualization and passed down in to the stomach and duodenum. He had duodenitis involving the bulb and 2nd portion of the duodenum. There were some very shallow ulcerations here. Biopsies were obtained from the 2nd portion of the d uodenum. The stomach itself revealed generalized moderate gastritis which certainly could account fo r nausea and epigastric pain. Retroflexed view of the fundus and lesser curvature showed gastritis in this vicinity as well. No distinct ulceration was present. Biopsies were taken from the gastric antrum. The gastroesophageal junction exhibited no evidence of masses, Hill's, inflammation or s trictures. The was suctioned from the stomach and the scope was withdrawn with no esophageal lesions found. He tolerated the procedure well and was stable to recovery. The patient was advised to stay on his proton pump inhibitor, Zantac and Carafate. He was advised th at it could take several months to heal the inflammation. He was advised to avoid NSAID's, alcohol o r smoking. He should take a protein supplement drink a few times a day. When he is more able to t olerate liquids, we can reconsider scheduling the colonoscopy. We have also agreed for a Gastroente rology referral given his diagnosis of Parkinson's disease to see if there is any contributing factor there. cc: Puja Aguilar.
== END 2019-03-25 13:00 | disposition home or self-care (01) ==
PROVIDERS: PCP Physician Assistant Medical; Visit Provider Surgery
PROC: 0DJ68ZZ Inspection of Stomach, Via Natural or Artificial Opening Endoscopic (ICD-10-PCS; CPT 43235; principal; 2019-03-25 10:45)
DX: R10.13 Epigastric pain (principal); R19.4 Change in bowel habit; K26.9 Duodenal ulcer, unspecified as acute or chronic, without hemorrhage or perforation; K31.89 Other diseases of stomach and duodenum
CPT/HCPCS: 43239; 88305; J2405

== ENCOUNTER → 2024-01-31 03:28 | Outpatient (CLI) | payer MEDICAID, SELFPAY ==
--- NOTE | 2024-01-31 | DI.US_ITS ---
APPROVED REPORT EXAM: Stress Echocardiogram Stress Nurse: Jennifer Cartagena RN Ordering Provider: JENNIFER PEREZ, Contact Number: [phone] HR: 83 bpm BP: 122/78 mmHg Rhythm: Sinus rhythm Indications: Chest pain, unspecified Medical History Medical History: Parkinsons disease, chronic pain, folic acid deficiency Medications: Carbidopa-levodopa, ceririzine, cyanocobalamine injections, dicyclomine, espomeprazole, flovent, lactulose, metoprolol succinate, zofran, oxycodone, prazosin Allergies: Insect venom Cardiac Risk Factors: Family hx, HTN, smoker Previous Cardiac Procedures: None Pretest Chest Pain Characteristics: None Exercise History: Indeterminate Physical Disabilities: None Stress Test Details Test: Exercise stress testing was performed using a Jadiel protocol. Rest Stress HR Resting HR Supine: 83 bpm Max Heart Rate (APMHR): 180 bpm Resting HR Standin bpm Target HR (85% APMHR): 153 bpm Max HR Achieved: 174 bpm % of APMHR: 97 Recovery HR: 82 bpm HR response to stress: Normal HR response to stress BP Resting BP Supine: 122/78 mmHg Resting BP Standin/82 mmHg Max BP: 170/90 mmHg Recovery BP: 122/92 mmHg BP response to stress: Normal blood pressure response to stress. ECG Resting ECG: Sinus Rhythm Ectopy: None Stress ECG: Sinus Tachycardia ST Change: No significant ST segment changes noted Arrhythmia: Occasional ?nonconducted PAC's Recovery ECG: Sinus Rhythm Recovery ST Change: No significant ST segment changes noted Recovery Arrhythmia: Occasional ?nonconducted PAC's Clinical Reason for Termination: Target HR Achieved Stress Symptoms: None Exercise duration: 09 min23 sec Highest Stage Reached: Stage 3: 3.4 mph at 14% grade. Exercise capacity: 10.78 METs Angina Score: None Cash Treadmill Score: 7.3 Rate Pressure Product: [id number] Stress ECG Conclusion 1. Resting electrocardiogram was normal 2. Patient exercised on the Jadiel protocol and completed a workload of 10.78 METS 3. Normal heart rate and blood pressure response to exercise. The patient achieved 97% of predicted heart rate for age 4. There was no electrocardiographic evidence of myocardial ischemia 5. There was no echocardiographic evidence of cardial ischemia 6. There were no significant dysrhythmias Cash Treadmill Score is 7.3 which is Low risk. Stress Test Summary STAGE Time (mins) Speed (mph) Grade (%) HR BP SYMPTOMS METS Supine 83 122/78 Standing 88 108/82 1 3 1.7 10 121 140/86 4.6 2 6 2.5 12 130 170/90 7 3 9 3.4 14 171 10.2 1 min recovery 109 162/72 3 min recovery 105 146/72 6 min recovery 82 122/82 Echo Findings The Pre-Stress Echocardiogram showed normal left ventricular contractility with an estimated Ejection Fraction of about 55-60%. The Peak-Stress Echocardiogram showed normal left ventricular contractility with an estimated Ejectio n Fraction of about 75%. Conclusion Resting electrocardiogram was normal Patient exercised on the Jadiel protocol and completed a workload of 10.78 METS Normal heart rate and blood pressure response to exercise. The patient achieved 97% of predicted hea rt rate for age There was no electrocardiographic evidence of myocardial ischemia There was no echocardiographic evidence of cardial ischemia There were no significant dysrhythmias Plain Cash Treadmill Score is 7.3 which is Low risk.
== END ==
PROVIDERS: PCP Physician Assistant Medical; Visit Provider Physician Assistant Medical
DX: R07.9 Chest pain, unspecified (principal)
CPT/HCPCS: 93350; 93017